=== PATIENT | male | born 1960 | race Caucasian/White ===

== ENCOUNTER 2025-06-28 11:14 | Inpatient (IN) ==
--- NOTE | 2025-06-28 11:34 | Emergency Department Note ---
Impression & Plan AMS (altered mental status), Pancreatic carcinoma metastatic to liver, Acute hyponatremia ED Provider Note NAME: PLACIDO MCGILL AGE: 65 SEX: M : 1960 ARRIVES VIA: Walk-In INFORMANT: Patient ED PROVIDER(S): Alli Rosa DO CHIEF COMPLAINT: Altered mental status HPI: Patient is a 65-year-old male with a past medical history of pancreatic carcinoma with metastatic disease to the liver and asthma who presents to the ER for altered mental status. Son who was present at bedside provides the majority of the history and notes that he was diagnosed with pancreatic cancer and was on chemo previously. That has stopped. They found a new lesion and started with some radiation. He notes that his dad has become confused over the past 2 weeks and has significant worsened over the past week. Patient denies all complaints including headache, neck pain, chest pain or shortness of breath. No other complaints. No upper respiratory symptoms or belly pain. No urinary symptoms. ADDITIONAL HISTORY OBTAINED: Per HPI as described above per son. Chronic Medical/Social Conditions Affecting Care: Per HPI PAST MEDICAL HISTORY:See Below PAST SURGICAL HISTORY:See Below FAMILY HISTORY:See Below SOCIAL HISTORY:See Below HOME MEDICATIONS:See Below ALLERGIES:See Below VITALS:See Below PHYSICAL EXAMINATION: GENERAL: Sitting up in bed, alert, well appearing, well nourished, no distress, non-toxic EYE EXAM: normal conjunctiva. PERRL and EOM's grossly intact. OROPHARYNX: no exudate, no erythema, lips, buccal mucosa, and tongue normal and mucous membranes are moist NECK: supple, no nuchal rigidity, no adenopathy, non-tender LUNGS: Clear to auscultation. Normal chest wall mechanics HEART: no murmurs, S1 normal and S2 normal ABDOMEN: abdomen soft, non-tender, normo-active bowel sounds, no masses, no rebound or guarding. BACK: Back is symmetrical on inspection and there is no deformity, no midline tenderness, no CVA tenderness. SKIN: no rashes and no bruising UPPER EXTREMITIES: upper extremities are grossly normal. LOWER EXTREMITIES: No pitting edema. NEURO EXAM: Oriented to person but not place, year or month, cranial nerves II- XII intact, normal speech, n weakness of arms, no weakness of legs. MEDICAL DECISION MAKING: Patient is a 65-year-old male who presents ER for the above-stated complaint. IV was established blood work was obtained. Labs show no significant leukocytosis. Mild anemia 11.9. BMP with hyponatremia 132. Glucose was elevated at 380. He was given IV insulin and 2 L IV fluids. LFTs bilirubin was unremarkable. Trended down to 312. Troponin was negative. Lipase normal. UA without signs of infection. CT head was negative. Chest x-ray unremarkable. Ammonia was unremarkable. With the confusion I discussed the case with the hospitalist for further evaluation management treatment. Patient and family were updated bedside. Consults/Care Managements Discussions: Per [facility] Triage Nursing notes reviewed. Limited review of prior medical records performed Vital Signs: reviewed and remarkable for no significant abnormalities Differential diagnosis: Differential diagnoses includes but is not limited to toxic, metabolic, infectious, traumatic, cardiac, neurologic, hematologic, psychiatric and inflammatory etiologies. ER treatment provided: See below Diagnostics interpreted by me include EKG and cardiac monitoring as listed below: -Cardiac Monitoring: An order was placed for continuous cardiac monitoring. The monitor shows a rate of 92 with paced rhythm. -ECG: Paced rhythm rate 100 Left axis PVCs QTc 549 -Laboratory studies:Interpreted by me as stated above in MDM and shown below. Imaging studies: Xrays: As interpreted by me: Portable AP upright 1 view of the chest shows no focal Lutrate CTs show: CT of the head showed no acute allergies Procedures:none Critical Care: None Past Med/Surg History Problem List (Updated 06/14/25 @ 10:02 by Debbie Tafoya RN) Acute hyponatremia (Acute) AMS (altered mental status) (Acute) Hyperglycemia Acute encephalopathy Pancreatic carcinoma metastatic to liver (Chronic) Asthma Arthritis Spermatocele Post-operative state (Acute 07/02/14) Medical History (Updated 06/28/25 @ 14:38 by Alli Rosa DO) Other specified cardiac arrhythmias Unilateral inguinal hernia, without obstruction or gangrene, not specified as recurrent Diverticulosis of intestine, part unspecified, without perforation or abscess without bleeding Left lower quadrant pain Spinal stenosis of lumbar region Acute frontal sinusitis Osteoarthritis of knee, unspecified Allergic rhinitis Gastro-esophageal reflux disease without esophagitis Hypothyroidism Pacemaker Cardiac disorder Surgical History (Updated 06/14/25 @ 10:02 by Debbie Tafoya RN) S/P left rotator cuff repair S/p total knee replacement, bilateral History of tonsillectomy History of repair of hiatal hernia History of permanent cardiac pacemaker placement H/O hernia repair left; H/O sinus surgery polyps; Family History (Updated 06/14/25 @ 10:06 by Debbie Tafoya RN) Father Diabetes Hypertension Heart disease Crohn's disease Dementia Mother Congestive heart failure Dementia Diabetes Anemia Aunt Pancreatic cancer, Onset Age: 70 Social History (Updated 06/14/25 @ 10:07 by Debbie Tafoya RN) Smoking Status: Never smoker Hx Alcohol Use: No Hx Substance Use: No Preferred Language: Bolivian Beliefs That Will Affect Care: None marital status: Current Living Situation: Alone current occupational status: employed How many Children do You have: 2 Feels Safe at Home: Yes Allergies Allergies Allergy/AdvReac Type Severity Reaction Status Date / Time cat dander Allergy Mild Verified 06/25/25 14:53 dog dander Allergy Mild Verified 06/25/25 14:53 mold Allergy Mild Verified 06/25/25 14:53 pollen extracts Allergy Mild Verified 06/25/25 14:53 ragweed pollen Allergy Mild Verified 06/25/25 14:53 No Known Drug Allergies Allergy Unknown Verified 06/25/25 14:53 azithromycin AdvReac Mild Diarrhea Verified 06/25/25 14:53 Iodinated Contrast Media AdvReac Mild Nausea Verified 06/25/25 14:53 Dust Allergy Mild Uncoded 06/25/25 14:53 PSEUDOCHOLINESTERASE AdvReac Unknown "resp Uncoded 06/25/25 14:53 distress" Home Meds Home Medications Medication Instructions Recorded Confirmed montelukast 10 mg PO DAILY ##0 09/14/08 06/28/25 Phenylephrine HCl (Ammon-Synephrine) 2 spry intranasal BID PRN 06/14/14 06/28/25 Congestion ##0 albuterol sulfate 90 mcg/actuation 2 inh inhalation QID PRN sob 03/10/21 06/28/25 aerosol inhaler (Ventolin HFA) diltiazem HCl 300 mg 300 mg PO DAILY 06/14/25 06/28/25 capsule,extended release 24 hr (Cartia XT) trazodone 50 mg tablet 50 mg PO HS 06/14/25 06/28/25 levothyroxine 25 mcg tablet 25 mcg PO DAILYBB 06/28/25 06/28/25 lorazepam 0.5 mg tablet 0.5 mg PO TID PRN Anxiety 06/28/25 06/28/25 ondansetron HCl 4 mg tablet 4 mg PO Q8H PRN Nausea 06/28/25 06/28/25 oxycodone 10 mg tablet 5 - 10 mg PO Q4H PRN Pain 06/28/25 06/28/25 pantoprazole 40 mg tablet,delayed 40 mg PO DAILY 06/28/25 06/28/25 release Results & Data (ED) Vital Signs Vital Signs - 24 hr 06/28/25 11:17 06/28/25 12:14 06/28/25 12:30 Temperature 36.2 C L Temperature Source Oral Pulse Rate 80 101 H 97 H Pulse Rate from SpO2 Sensor 97 H Respiratory Rate 18 11 L Respiratory Effort / Characteristics Non-Labored Spontaneous Respiratory Depth Normal Respiratory Pattern Regular Blood Pressure 125/73 123/79 Blood Pressure Mean 90 93 Pulse Oximetry 97 97 Oxygen Delivery Method Room Air Sepsis Recent Fever Within 48 Hours No Sepsis New/Unexplained Change in Mental Status N/A Sepsis Action Taken by Nursing No Action Required Laboratory Data 06/28/25 11:30 06/28/25 11:30 Lab Results 06/28/25 06/28/25 06/28/25 Range/Units 11:30 11:35 12:39 WBC 5.00 (4.8-10.8) K/ul RBC 3.98 L (4.70-6.10) M/uL Hgb 11.9 L (14.0-18.0) g/dL Hct 34.7 L (42.0-52.0) % MCV 87.2 (80.0-100.0) fL MCH 29.9 (25.0-34.0) pg MCHC 34.3 (32.0-36.0) g/dL RDW Std Deviation 48.1 H (36.4-46.3) fL RDW Coeff of [place] 15.2 H (11.5-14.5) % Plt Count 141 (130-400) K/uL MPV 13.1 H (9.4-12.4) fL Immature Gran % (Auto) 0.6 % Neut % (Auto) 78.2 % Lymph % (Auto) 10.6 % Dade % (Auto) 10.4 % Eos % (Auto) 0.0 % Baso % (Auto) 0.2 % Neut # (Auto) 3.91 (1.40-6.50) K/uL Lymph # (Auto) 0.53 L (1.20-3.40) K/uL Dade # (Auto) 0.52 (0.11-0.59) K/uL Eos # (Auto) 0.00 (0.00-0.50) K/uL Baso # (Auto) 0.01 (0.00-0.20) K/uL Immature Gran # (Auto) 0.03 (0.01-0.20) K/uL Sodium 132 L (136-145) mmol/L Potassium 3.9 (3.5-5.1) mmol/L Chloride 93 L (98-107) mmol/L Carbon Dioxide 26 (21-32) mmol/L Anion Gap 13 H (3-11) BUN 12 (6-23) mg/dl Creatinine 0.85 (0.6-1.4) mg/dl Est Cr Clr Drug Dosing Not Reportable eGFR 97.03 BUN/Creatinine Ratio 14.1 (10-20) Glucose 380 H* (70-99(Fasting)) mg/dl POC Glucose 405 H* (70-99) mg/dl Calcium 9.7 (8.6-10.3) mg/dl Total Bilirubin 0.9 (0.2-1.0) mg/dl AST 16 (13-39) U/L ALT 12 (7-52) U/L Alkaline Phosphatase 105 H (34-104) U/L Ammonia 19.0 (18-72) umol/L Troponin I High Sens 18.1 (0-20) pg/ml Total Protein 7.1 (6.0-8.3) gm/dl Albumin 4.2 (3.4-5.0) gm/dl Globulin 2.9 (2.5-4.0) gm/dl Albumin/Globulin Ratio 1.4 (0.9-2) Lipase < 3 L (11-82) U/L Urine Color Urine Appearance (Clear) Urine pH (4.5-7.5) Ur Specific [place] (1.000-1.030) Urine Protein (Negative) Urine Glucose (UA) (Negative) Urine Ketones (Negative) Urine Blood (Negative) Urine Nitrite (Negative) Urine Bilirubin (Negative) Urine Urobilinogen (Negative) Ur Leukocyte Esterase (Negative) Urine WBC (Auto) (0-5) /hpf Urine RBC (Auto) (0-2) /hpf U Hyaline Cast (Auto) (0-2) /lpf U Epithel Cells (Auto) (0-2) /hpf Urine Bacteria (Auto) (None Seen) Urine Comment 06/28/25 06/28/25 Range/Units 13:30 13:37 WBC (4.8-10.8) K/ul RBC (4.70-6.10) M/uL Hgb (14.0-18.0) g/dL Hct (42.0-52.0) % MCV (80.0-100.0) fL MCH (25.0-34.0) pg MCHC (32.0-36.0) g/dL RDW Std Deviation (36.4-46.3) fL RDW Coeff of [place] (11.5-14.5) % Plt Count (130-400) K/uL MPV (9.4-12.4) fL Immature Gran % (Auto) % Neut % (Auto) % Lymph % (Auto) % [place] % (Auto) % Eos % (Auto) % Baso % (Auto) % Neut # (Auto) (1.40-6.50) K/uL Lymph # (Auto) (1.20-3.40) K/uL Dade # (Auto) (0.11-0.59) K/uL Eos # (Auto) (0.00-0.50) K/uL Baso # (Auto) (0.00-0.20) K/uL Immature Gran # (Auto) (0.01-0.20) K/uL Sodium (136-145) mmol/L Potassium (3.5-5.1) mmol/L Chloride (98-107) mmol/L Carbon Dioxide (21-32) mmol/L Anion Gap (3-11) BUN (6-23) mg/dl Creatinine (0.6-1.4) mg/dl Est Cr Clr Drug Dosing eGFR BUN/Creatinine Ratio (10-20) Glucose (70-99(Fasting)) mg/dl POC Glucose 312 H* (70-99) mg/dl Calcium (8.6-10.3) mg/dl Total Bilirubin (0.2-1.0) mg/dl AST (13-39) U/L ALT (7-52) U/L Alkaline Phosphatase (34-104) U/L Ammonia (18-72) umol/L Troponin I High Sens (0-20) pg/ml Total Protein (6.0-8.3) gm/dl Albumin (3.4-5.0) gm/dl Globulin (2.5-4.0) gm/dl Albumin/Globulin Ratio (0.9-2) Lipase (11-82) U/L Urine Color Yellow Urine Appearance Clear (Clear) Urine pH 6.0 (4.5-7.5) Ur Specific [place] 1.038 H (1.000-1.030) Urine Protein Trace H (Negative) Urine Glucose (UA) 3+ H (Negative) Urine Ketones 2+ H (Negative) Urine Blood Negative (Negative) Urine Nitrite Negative (Negative) Urine Bilirubin Negative (Negative) Urine Urobilinogen Negative (Negative) Ur Leukocyte Esterase Negative (Negative) Urine WBC (Auto) 0-5 (0-5) /hpf Urine RBC (Auto) 0-2 (0-2) /hpf U Hyaline Cast (Auto) 3-5 H (0-2) /lpf U Epithel Cells (Auto) 0-2 (0-2) /hpf Urine Bacteria (Auto) None Seen (None Seen) Urine Comment Administered Medications Discontinued Medications Sodium Chloride (Nss) 1,000 mls @ 999 mls/hr IV .Q1H1M ONE Stop: 06/28/25 12:32 Last Infusion: 06/28/25 14:27 Dose: Infused Documented By: Admin: 06/28/25 12:47 Dose: 999 mls/hr Documented By: Sodium Chloride (Nss) 1,000 mls @ 999 mls/hr IV .Q1H1M ONE Stop: 06/28/25 13:22 Last Infusion: 06/28/25 14:27 Dose: Infused Documented By: Admin: 06/28/25 12:48 Dose: 999 mls/hr Documented By: Insulin Human Regular (Novolin-R Insulin Per Unit Charge) 4 units IV NOW STA Stop: 06/28/25 12:23 Last Admin: 06/28/25 12:48 Dose: 4 units Documented By: Co-signed By: GILDARDO Imaging Data Radiologist's Impression: Head CT 06/28/25 11:31 CT head/brain wo con CLINICAL HISTORY: 65 years-old Male with ams. Acutely altered mental status TECHNIQUE: Multiple axial CT images of the head were obtained without contrast. A dose lowering technique was utilized adhering to the principles of ALARA. CT DOSE: 625.8 mGy.cm COMPARISON: Head CT 03/27/2025 FINDINGS: No acute intracranial hemorrhage, midline shift, intracranial mass, hydrocephalus, territorial ischemia or abnormal extra-axial collection. Mild involutional changes. Cerebrovascular calcifications. Chronic postoperative changes of the paranasal sinuses. Mastoid air cells are clear. Unremarkable soft tissues. IMPRESSION: No acute intracranial abnormality. ACT 112: Negative or not required by law. The above report was generated using voice recognition software. It may contain grammatical, syntax or spelling errors. Electronically signed by: David Naylor M.D. 06/28/2025 12:19 PM Chest X-Ray 06/28/25 12:22 XR chest 1V portable CLINICAL HISTORY: ams COMPARISON STUDY: 03/27/2025 FINDINGS: Stable right chest port and left pacemaker. Heart size and pulmonary vasculature are normal. No consolidation or pleural effusion. No pneumothorax. IMPRESSION: No acute findings. ACT 112: Negative or not required by law. Electronically signed by: Rory Ace M.D. 06/28/2025 12:49 PM Discharge Plan Visit Data Chief Complaint: Lethargic Stated Complaint: ABD DISCOMFORT, LETHARGY, CONFUSION, WEAKNESS ED Provider: Alli Rosa Discharge Problem: AMS (altered mental status), Pancreatic carcinoma metastatic to liver, Acute hyponatremia Condition: Fair Forms Stand Alone Forms: My [facility] Prescriptions Prescriptions: No Action trazodone 50 mg tablet 50 mg PO HS diltiazem HCl [Cartia XT] 300 mg capsule,extended release 24hr 300 mg PO DAILY montelukast 10 MG tablet 10 mg PO DAILY Qty: 0 Phenylephrine HCl (Ammon-Synephrine) 225 SPRAYS/15 ML SPRAY 2 spry intranasal BID PRN (Reason: Congestion) Qty: 0 albuterol sulfate [Ventolin HFA] 90 mcg/actuation HFA aerosol inhaler 2 inh inhalation QID PRN (Reason: sob) ondansetron HCl 4 mg tablet 4 mg PO Q8H PRN (Reason: Nausea) levothyroxine 25 mcg tablet 25 mcg PO DAILYBB lorazepam 0.5 mg tablet 0.5 mg PO TID PRN (Reason: Anxiety) pantoprazole 40 mg tablet,delayed release (DR/EC) 40 mg PO DAILY oxycodone 10 mg tablet 5 - 10 mg PO Q4H PRN (Reason: Pain) Patient Comments: Prescribed 1 tablet every 4 hours, per family patient takes 1 or 2 tablets at a time. Referrals Referrals: Varghese Schwab [Primary Care Provider] - Discharge Problem: AMS (altered mental status) Qualifiers: Altered mental status type: unspecified Qualified Code(s): R41.82 - Altered mental status, unspecified
[2025-06-28 11:56] LABS: Hematocrit (blood only) 34.7 % (42.0-52.0); Hemoglobin 11.9 g/dL (14.0-18.0); Immature Granulocytes # (auto) 0.03 K/uL (0.01-0.20); Immature Granulocytes % (auto) 0.6 %; Mean Corpuscular Hemoglobin 29.9 pg (25.0-34.0); Mean Corpuscular Volume 87.2 fL (80.0-100.0); Platelet Count 141 K/uL (130-400); RDW Standard Deviation 48.1 fL (36.4-46.3); Red Blood Count 3.98 M/uL (4.70-6.10); White Blood Count 5.00 K/ul (4.8-10.8)
[2025-06-28 12:20] LABS: Alanine Aminotransferase 12 U/L (7-52); Albumin Globulin Ratio 1.4 (0.9-2); Albumin Level 4.2 gm/dl (3.4-5.0); Alkaline Phosphatase 105 U/L (34-104); Anion Gap 13 (3-11); Bilirubin,Total 0.9 mg/dl (0.2-1.0); Blood Urea Nitrogen 12 mg/dl (6-23); Calcium 9.7 mg/dl (8.6-10.3); Carbon Dioxide 26 mmol/L (21-32); Chloride 93 mmol/L (98-107); Globulin 2.9 gm/dl (2.5-4.0); Glucose 380 mg/dl (70-99(Fasting)); Potassium 3.9 mmol/L (3.5-5.1); Sodium 132 mmol/L (136-145); Total Protein 7.1 gm/dl (6.0-8.3)
--- NOTE | 2025-06-28 12:20 | CT Scan Report ---
CT head/brain wo con CLINICAL HISTORY: 65 years-old Male with ams. Acutely altered mental status TECHNIQUE: Multiple axial CT images of the head were obtained without contrast. A dose lowering tech nique was utilized adhering to the principles of ALARA. CT DOSE: 625.8 mGy.cm COMPARISON: Head CT 03/27/2025 FINDINGS: No acute intracranial hemorrhage, midline shift, intracranial mass, hydrocephalus, territorial ischem ia or abnormal extra-axial collection. Mild involutional changes. Cerebrovascular calcifications. Chronic postoperative changes of the paranasal sinuses. Mastoid air cells are clear. Unremarkable so ft tissues. IMPRESSION: No acute intracranial abnormality. ACT 112: Negative or not required by law. The above report was generated using voice recognition software. It may contain grammatical, syntax o r spelling errors. Electronically signed by: David Naylor M.D. 06/28/2025 12:19 PM
[2025-06-28 12:45] LABS: Lipase < 3 U/L (11-82)
[2025-06-28] MEDS: SODIUM CHLORIDE 0.9% 1,000 ML IV ONE ×2 (12:47→12:48)
[2025-06-28] MEDS: NovoLIN-R INSULIN PER UNIT CHARGE IV STA (12:48)
--- NOTE | 2025-06-28 12:50 | XRay Report ---
XR chest 1V portable CLINICAL HISTORY: ams COMPARISON STUDY: 03/27/2025 FINDINGS: Stable right chest port and left pacemaker. Heart size and pulmonary vasculature are normal . No consolidation or pleural effusion. No pneumothorax. IMPRESSION: No acute findings. ACT 112: Negative or not required by law. Electronically signed by: Rory Ace M.D. 06/28/2025 12:49 PM
[2025-06-28 13:47] LABS: Appearance Urine Clear (Clear); Bacteria Urine Automated None Seen (None Seen); Epithelial Cell Urine Auto 0-2 /hpf (0-2); Glucose Urine UA 3+ (Negative); RBC Urine Automated 0-2 /hpf (0-2); WBC Urine Automated 0-5 /hpf (0-5)
--- NOTE | 2025-06-28 14:35 | History & Physical Report ---
Date of Service June 28, 2025 Assessment & Plan (1) Acute encephalopathy: (2) Hyperglycemia: (3) Pancreatic carcinoma metastatic to liver: (4) Hypothyroidism: Plan This patient is a 65-year-old male with a history of metastatic pancreatic cancer, pacemaker for complete heart block after ablation, asthma, hypothyroidism, HTN, GERD, and insomnia, who presents to the ED with increasing confusion over the last 2 weeks. He has recently been undergoing radiation to the pancreatic mass. Patient denies headache, neck pain, chest pain or shortness of breath, no cough or congestion, no fevers or chills, no urinary symptoms, no nausea/vomiting/diarrhea but has had some constipation. He denies increase in urination but has felt very thirsty. He has been taking Percocet for pain and then was given a higher dose of oxycodone without acetaminophen. The patient reports he has been taking 2 of these tablets 3 times a day on average but his son and daughter at the bedside are wondering if he accidentally took too much due to his confusion. Patient complains at the time of admission of epigastric abdominal pain and is asking for something for pain. He is slow to speak which his daughter reports is unusual for him-he is typically very talkative. In the ED, he was found to have a blood sugar in the low 400s, but laboratory workup was otherwise fairly unremarkable. A CT of the head was negative for acute issues and a CXR was negative. He was given IV fluids and IV insulin. He will be admitted for acute encephalopathy likely secondary to hyperglycemia, and possibly due to overdose of oxycodone. #Acute encephalopathy/hyperglycemia/possible toxic encephalopathy secondary to opioid use-hyperglycemic in the 400s could be secondary to pancreatic insufficiency s/p pancreatic cancer and radiation of the pancreas. Also may have overdosed on oxycodone. He has been taking 2 of the 10 mg tablets 3 times a day because I believe he thought they were [address] head without acute issue and he cannot have a brain MRI due to his MRI incompatible pacemaker but doubtful he had a stroke. He could potentially have an intracranial mass lesion but nothing seen on CT and no focal neurological symptoms. NH3 level normal. No evidence of infection-no fevers, no leukocytosis, CXR negative, UA negative, no other symptoms besides lethargy and confusion. Do not suspect meningitis or infectious encephalitis - Admit to medical floor with telemetry - Continue IV fluid hydration as he is dry with 2 more liters of LR at 125 mL/h - Give Lantus 5 units now and then 8 units every night at bedtime. Start NovoLog supplemental insulin - Check HgbA1c - Check APAP level due to possible overdose of Percocet although LFTs are normal - Follow CBC, BMP, magnesium in the morning - Supportive care #Pseudohyponatremia-sodium 132 on admission but normalizes when corrected for hyperglycemia to 136 -Follow BMP #Metastatic pancreatic cancer-with metastases to the liver, previously underwent chemotherapy as well as liver mass excision, but has since stopped chemotherapy as he was thought to be in remission as per his family. However, I discussed his care with his oncologist and she reports that after 6 months of systemic chemotherapy, the patient decided that he did not want any more chemotherapy even though it was recommended. He went on surveillance and then began having abdominal pain in 03/2025. He had a repeat CT scan in 04/2025 which again showed a 2.6 cm mass in the pancreas. He had increasing pain in the upper abdomen and had an EUS with [facility] which showed a 3 cm pancreatic head mass and a liver mass-his oncologist again offered systemic chemotherapy but the patient declined to have this. He is exploring a clinical trial for a specific radiation therapy at [facility] which he cannot get into until the end of the year. He is also exploring alternative therapies with a doctor in [place]. In the meantime, for pain control, his oncologist referred him to radiation oncology and he is receiving radiation to pancreatic head mass. His son and daughter are under the impression that his cancer is in remission and that the radiation is for "nerve pain." It may be that the patient has not wanted to tell his children the truth about his stage IV cancer. -Continue treating pain-okay to give oxycodone 10 mg p.o. every 4 hours as needed pain and IV Dilaudid as needed on top of that for breakthrough pain - Follow-up with oncology and radiation oncology after discharge #HTN/permanent pacemaker-BPs are under control. Pacemaker placed after a failed SVT ablation resulted in what sounds like complete heart block-pacemaker was placed 30 years ago when he had battery exchange in 11/2024. He follows with Dr. Burciaga of cardiology in [place]. - Continue diltiazem #Hypothyroidism-TSH recently 5.0 - Continue home levothyroxine #Asthma-no acute issues - Albuterol as needed - Continue Singulair #GERD-no acute issues - Continue Protonix #Insomnia-no acute issues - Continue trazodone 50 mg p.o. at bedtime DVT prophylaxis-SCDs, Lovenox SQ as he is high risk for DVT/PE Disposition-admit to medical floor with telemetry History of Present Illness Chief Complaint: confusion Primary Care Provider: Varghese Schwab This patient is a 65-year-old male with a history of metastatic pancreatic cancer, pacemaker for complete heart block after ablation, asthma, hypothyroidism, HTN, GERD, and insomnia, who presents to the ED with increasing confusion over the last 2 weeks. He has recently been undergoing radiation to the pancreatic mass. Patient denies headache, neck pain, chest pain or shortness of breath, no cough or congestion, no fevers or chills, no urinary symptoms, no nausea/vomiting/diarrhea but has had some constipation. He denies increase in urination but has felt very thirsty. He has been taking Percocet f or pain and then was given a higher dose of oxycodone without acetaminophen. The patient reports he has been taking 2 of these tablets 3 times a day on average but his son and daughter at the bedside are wondering if he accidentally took too much due to his confusion. Patient complains at the time of admission of epigastric abdominal pain and is asking for something for pain. He is slow to speak which his daughter reports is unusual for him-he is typically very talkative. In the ED, he was found to have a blood sugar in the low 400s, but laboratory workup was otherwise fairly unremarkable. A CT of the head was negative for acute issues and a CXR was negative. He was given IV fluids and IV insulin. He will be admitted for acute encephalopathy likely secondary to hyperglycemia, and possibly due to overdose of oxycodone. Allergies Allergy/AdvReac Type Severity Reaction Status Date / Time cat dander Allergy Mild Verified 06/25/25 14:53 dog dander Allergy Mild Verified 06/25/25 14:53 mold Allergy Mild Verified 06/25/25 14:53 pollen extracts Allergy Mild Verified 06/25/25 14:53 ragweed pollen Allergy Mild Verified 06/25/25 14:53 No Known Drug Allergies Allergy Unknown Verified 06/25/25 14:53 azithromycin AdvReac Mild Diarrhea Verified 06/25/25 14:53 Iodinated Contrast Media AdvReac Mild Nausea Verified 06/25/25 14:53 Dust Allergy Mild Uncoded 06/25/25 14:53 PSEUDOCHOLINESTERASE AdvReac Unknown "resp Uncoded 06/25/25 14:53 distress" Home Medications Medication Instructions Recorded Confirmed Type montelukast 10 mg PO DAILY ##0 09/14/08 06/28/25 History Phenylephrine HCl (Ammon-Synephrine) 2 spry intranasal BID PRN 06/14/14 06/28/25 History Congestion ##0 albuterol sulfate 90 mcg/actuation 2 inh inhalation QID PRN sob 03/10/21 06/28/25 History aerosol inhaler (Ventolin HFA) diltiazem HCl 300 mg 300 mg PO DAILY 06/14/25 06/28/25 History capsule,extended release 24 hr (Cartia XT) trazodone 50 mg tablet 50 mg PO HS 06/14/25 06/28/25 History levothyroxine 25 mcg tablet 25 mcg PO DAILYBB 06/28/25 06/28/25 History lorazepam 0.5 mg tablet 0.5 mg PO TID PRN Anxiety 06/28/25 06/28/25 History ondansetron HCl 4 mg tablet 4 mg PO Q8H PRN Nausea 06/28/25 06/28/25 History oxycodone 10 mg tablet 5 - 10 mg PO Q4H PRN Pain 06/28/25 06/28/25 History pantoprazole 40 mg tablet,delayed 40 mg PO DAILY 06/28/25 06/28/25 History release Past Med/Surg History Problem List Acute hyponatremia (Acute) AMS (altered mental status) (Acute) Hyperglycemia Acute encephalopathy Pancreatic carcinoma metastatic to liver (Chronic) Asthma Arthritis Spermatocele Medical History Other specified cardiac arrhythmias Unilateral inguinal hernia, without obstruction or gangrene, not specified as recurrent Diverticulosis of intestine, part unspecified, without perforation or abscess without bleeding Left lower quadrant pain Spinal stenosis of lumbar region Acute frontal sinusitis Osteoarthritis of knee, unspecified Allergic rhinitis Gastro-esophageal reflux disease without esophagitis Hypothyroidism Pacemaker Cardiac disorder Surgical History S/P left rotator cuff repair S/p total knee replacement, bilateral History of tonsillectomy History of repair of hiatal hernia History of permanent cardiac pacemaker placement H/O hernia repair left; H/O sinus surgery polyps; Family History Father Diabetes Hypertension Heart disease Crohn's disease Dementia Mother Congestive heart failure Dementia Diabetes Anemia Aunt Pancreatic cancer, Onset Age: 70 Social History Smoking Status: Never smoker Hx Alcohol Use: No Hx Substance Use: No Preferred Language: Italian Beliefs That Will Affect Care: None marital status: Current Living Situation: Alone current occupational status: employed How many Children do You have: 2 Feels Safe at Home: Yes Review of Systems Review of Systems: All systems reviewed & are unremarkable except as noted in HPI & below Physical Exam Constitutional: WD/WN, vitals as above Eyes: PERRL, conjunctivae normal, anicteric sclerae ENMT: Mouth: + dry oral mucous membranes Neck: trachea midline, no thyromegaly Respiratory: normal respiratory effort, lungs clear to auscultation Cardiovascular: RRR, no murmur, no edema Chest (Breasts): Chest: normal inspection of chest Gastrointestinal (Abdomen): normal bowel sounds, soft, nontender, no hepatosplenomegaly Musculoskeletal: Extremities: extremities normal to inspection; no cyanosis and no clubbing Skin: no rashes, warm and dry Neurologic: moves all extremities and awake; no focal motor deficits Mo tor/Sensory: no tremor Psychiatric: Orientation: alert (But intermittently drowsy), oriented x 3 and cooperative Lymphatic: no lymphedema Results & Data Results & Data Vital Signs (Past 12 Hours) Vital Signs Temp Pulse Resp BP Pulse Ox O2 Del Method 06/28/25 12:30 97 H 11 L 123/79 97 06/28/25 12:14 101 H 06/28/25 11:17 36.2 C L 80 18 125/73 97 Room Air Laboratory Results CBC, CMP, lipase, troponin, ammonia level, UA, reviewed Diagnostic Findings Head CT 06/28/25 11:31 CT head/brain wo con CLINICAL HISTORY: 65 years-old Male with ams. Acutely altered mental status TECHNIQUE: Multiple axial CT images of the head were obtained without contrast. A dose lowering technique was utilized adhering to the principles of ALARA. CT DOSE: 625.8 mGy.cm COMPARISON: Head CT 03/27/2025 FINDINGS: No acute intracranial hemorrhage, midline shift, intracranial mass, hydrocephalus, territorial ischemia or abnormal extra-axial collection. Mild involutional changes. Cerebrovascular calcifications. Chronic postoperative changes of the paranasal sinuses. Mastoid air cells are clear. Unremarkable soft tissues. IMPRESSION: No acute intracranial abnormality. ACT 112: Negative or not required by law. The above report was generated using voice recognition software. It may contain grammatical, syntax or spelling errors. Electronically signed by: David Naylor M.D. 06/28/2025 12:19 PM Chest X-Ray 06/28/25 12:22 XR chest 1V portable CLINICAL HISTORY: ams COMPARISON STUDY: 03/27/2025 FINDINGS: Stable right chest port and left pacemaker. Heart size and pulmonary vasculature are normal. No consolidation or pleural effusion. No pneumothorax. IMPRESSION: No acute findings. ACT 112: Negative or not required by law. Electronically signed by: Rory Ace M.D. 06/28/2025 12:49 PM ECG Additional Comments: ECG with AV paced rhythm Code Status & VTE Plan VTE Prophylaxis Plan VTE Prophylaxis will be ordered: Yes PG Care Time/CCT Total # of Minutes Spent Total Time Spent with Patient: Total time spent is greater than 50% in coordination of care (as documented) at patient's floor/unit and/or counseling patient: Coding Level of Care Code 06498 INT INP/OBS CARE 3/75MIN Diagnoses Acute encephalopathy G93.40 Hyperglycemia R73.9 Pancreatic carcinoma metastatic to liver C25.9; C78.7 Hypothyroidism E03.9
[2025-06-28] MEDS: HYDROmorphone INJ 0.5 MG/0.5 ML SYR IV STA (16:12)
[2025-06-28] MEDS: LANTUS PER UNIT CHARGE SQ ONE (16:31)
[2025-06-28 16:48] LABS: Hemoglobin A1C 13.4 % (4.5-5.6)
[2025-06-28] MEDS ORDERED: DEXTROSE 50% 50 ML SYRINGE IV PRN (18:23)
[2025-06-28] MEDS ORDERED: GLUCAGON FOR INJ 1 MG VIAL SQ PRN (18:23)
[2025-06-28] MEDS ORDERED: CARBOHYDRATES FOR HYPOGLYCEMIA PO PRN (18:23)
[2025-06-28] MEDS ORDERED: GLUCOSE 10 TAB/TUBE PO PRN (18:23)
[2025-06-28] MEDS ORDERED: ONDANSETRON INJ 2 MG/ML 2 ML VIAL IV PRN (18:23)
[2025-06-28] MEDS ORDERED: GLUCOSE 40% GEL 15 GM TUBE PO PRN (18:23)
[2025-06-28] MEDS ORDERED: ALBUTEROL HFA 8 GM INHALER INH PRN (18:23)
--- NOTE | 2025-06-28 18:36 | Electrocardiogram Report ---
Test Reason : Blood Pressure : */* mmHG Vent. Rate : 100 BPM Atrial Rate : 100 BPM P-R Int : 144 ms QRS Dur : 160 ms QT Int : 426 ms P-R-T Axes : 62 -11 131 degrees QTcB Int : 549 ms Atrial-sensed ventricular-paced rhythm Abnormal ECG When compared with ECG of 27-Mar-2025 16:07, Vent. rate has increased by 31 bpm Confirmed by Dagoberto Taveras ([id number]) on 06/28/2025 6:36:00 PM Referred By: REFERRED SELF Confirmed By: Dagoberto Taveras
[2025-06-28] MEDS: LACTATED RINGER'S 1,000 ML IV SCH (18:42)
[2025-06-28] MEDS: INSULIN ASPART PER UNIT CHARGE SC SCH (18:48)
[2025-06-28] MEDS: PSYLLIUM HUSK 4GM PACKET PO SCH (20:03)
[2025-06-28] MEDS: ENOXAPARIN INJ 40 MG/0.4 ML SYR SQ SCH (20:04)
[2025-06-28] MEDS: LANTUS PER UNIT CHARGE SQ SCH (21:13)
[2025-06-29] MEDS: HYDROmorphone INJ 0.5 MG/0.5 ML SYR IV PRN ×2 (03:05→20:02)
[2025-06-29] MEDS: LEVOTHYROXINE SODIUM 25 MCG TABLET PO SCH (06:06)
[2025-06-29 07:08] LABS: Hematocrit (blood only) 30.3 % (42.0-52.0); Hemoglobin 10.5 g/dL (14.0-18.0); Immature Granulocytes # (auto) 0.02 K/uL (0.01-0.20); Immature Granulocytes % (auto) 0.5 %; Mean Corpuscular Hemoglobin 29.9 pg (25.0-34.0); Mean Corpuscular Volume 86.3 fL (80.0-100.0); Platelet Count 112 K/uL (130-400); RDW Standard Deviation 46.9 fL (36.4-46.3); Red Blood Count 3.51 M/uL (4.70-6.10); White Blood Count 3.81 K/ul (4.8-10.8)
[2025-06-29 07:30] LABS: Alanine Aminotransferase 9.0 U/L (7-52); Albumin Globulin Ratio 1.5 (0.9-2); Albumin Level 3.2 gm/dl (3.4-5.0); Alkaline Phosphatase 70.0 U/L (34-104); Anion Gap 7.0 (3-11); Bilirubin,Total 0.5 mg/dl (0.2-1.0); Blood Urea Nitrogen 4.0 mg/dl (6-23); Calcium 8.5 mg/dl (8.6-10.3); Carbon Dioxide 27.0 mmol/L (21-32); Chloride 101.0 mmol/L (98-107); Creatinine Clr Calc Pharmacy 139.3 ml/min; Globulin 2.1 gm/dl (2.5-4.0); Glucose 178.0 mg/dl (70-99(Fasting)); Magnesium 1.6 mg/dl (1.7-2.4); Potassium 3.1 mmol/L (3.5-5.1); Sodium 135.0 mmol/L (136-145); Total Protein 5.3 gm/dl (6.0-8.3)
[2025-06-29] MEDS: MONTELUKAST SODIUM 10 MG TABLET PO SCH (09:53)
[2025-06-29] MEDS: MAGNESIUM SULFATE / D5W 1 GM/100 ML BAG IV SCH (09:55)
[2025-06-29] MEDS ORDERED: Nursing to Pharmacy Communication STA (10:01)
[2025-06-29] MEDS: POTASSIUM CHLORIDE CRTAB 20 MEQ TABCR PO STA ×2 (10:08→10:59)
--- NOTE | 2025-06-29 12:45 | Hospitalist Progress Note ---
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 He has recently been undergoing radiation to the pancreatic mass. Patient denies headache, neck pain, chest pain or shortness of breath, no cough or congestion, no fevers or chills, no urinary symptoms, no nausea/vomiting/diarrhea but has had some constipation. He denies increase in urination but has felt very thirsty. He is slow to speak which his daughter reports is unusual for him-he is typically very talkative. In the ED, he was found to have a blood sugar in the low 400s, but laboratory workup was otherwise fairly unremarkable. A CT of the head was negative for acute issues and a CXR was negative. He was given IV fluids and IV insulin. As it turns out, he has been taking excessive amounts of his new prescription for oxycodone 10 mg tablets-took an average of 10.6 tablets daily over the last 13 days since his last bottle was filled. He will be admitted for acute encephalopathy secondary to hyperglycemia, and unintentional overdose of oxycodone. #Acute metabolic and toxic encephalopathy/hyperglycemia/unintentional excessive opioid use-hyperglycemic in the 400s could be secondary to pancreatic insufficiency s/p pancreatic cancer and radiation of the pancreas. He has been taking excessive doses of oxycodone over the last 2 weeks for pain in the abdomen. CT head negative, he cannot have a brain MRI due to his MRI incompatible pacemaker but doubtful he had a stroke. He could potentially have an intracranial mass lesion but nothing seen on CT and no focal neurological symptoms. NH3 level normal, APAP level normal. No evidence of infection-no fevers, no leukocytosis, CXR negative, UA negative, no other symptoms besides lethargy and confusion. Do not suspect meningitis or infectious encephalitis. He is now significantly improved with decreasing his dose of oxycodone and treating his hyperglycemia, giving IV fluids - Continued stay on medical floor with telemetry - Treating diabetes as below -Pain management as below - Supportive care, suggested to his family that they help control his oxycodone dosing in the future #Metastatic pancreatic cancer-with metastases to the liver, previously underwent chemotherapy as well as liver mass excision, but has since stopped chemotherapy as he was thought to be in remission as per his family. However, I discussed his care with his oncologist and she reports that after 6 months of systemic chemotherapy, the patient decided that he did not want any more chemotherapy even though it was recommended. He went on surveillance and then began having abdominal pain in 03/2025. He had a repeat CT scan in 04/2025 which again showed a 2.6 cm mass in the pancreas. He had increasing pain in the upper abdomen and had an EUS with [facility] in 05/2025 which showed a 3 cm pancreatic head mass and a liver mass-his oncologist again offered systemic chemotherapy but the patient declined to have this. He is exploring a clinical trial for a specific radiation therapy at [facility] which he cannot get into until the end of the year. He is also exploring alternative therapies with a doctor in [place]. The patient does feel that he was "misled" as far as his cancer-he does truly think that he was told that everything was "good." In the meantime, for pain control, his oncologist referred him to radiation oncology and he is receiving radiation to pancreatic head mass. He is okay with me talking to his children about his diagnosis and was not intentionally shielding them from it -Start fentanyl patch 12 mcg every 72 hours - Continue oxycodone 10 mg p.o. 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 He presented with confusion and dehydration with hyperglycemia glucose in the 400s. Blood sugars are improving with IV fluids and starting Lantus and NovoLog-down in the 200-3 100s. 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 Counseled him on the importance of staying along with multiple members of the family at bedside and on speaker phone. He is agreeable to staying for now. - Continue trazodone 50 mg p.o. at bedtime - Continue lorazepam 0.5 mg p.o. 3 times daily as needed for anxiety #HTN/permanent pacemaker-BPs are under control. Pacemaker placed after a failed SVT ablation resulted in what sounds like complete heart block-pacemaker was placed 30 years ago when he had battery exchange in 11/2024. He follows with Dr. Burciaga of cardiology in [place]. He is in a paced rhythm but also in the 80s to 100s at times on telemetry - Continue diltiazem #Hypothyroidism-TSH recently 5.0 - Continue home levothyroxine #Asthma-no acute issues - Albuterol as needed - Continue Singulair #GERD-no acute issues - Continue Protonix DVT prophylaxis-SCDs, Lovenox SQ as he is high risk for DVT/PE Disposition-continued stay on medical floor with telemetry, possible discharge home on 06/30 Admission and Anticipated Discharge Date Admission Date: June 28, 2025 Subjective Patient is much improved today with mentation. He feels his pain is controlled. He does report that he thought his interpretation from oncology was that his cancer was gone but that he knew he was doing radiation. He thinks that he was misled. He is agreeable to starting on a fentanyl patch for baseline pain control. His blood sugars are improved but remain elevated. He is agreeable to going on insulin at home. Later in the evening, I was called to the patient's bedside as he was wanting to leave AGAINST MEDICAL ADVICE. I discussed his care with his daughter on speaker phone, his brother and nephew at the bedside. The patient is frustrated and thinks that he can just handle everything "on my own like I have for the last year and a half." Patient was agreeable to staying at least until his daughter came into visit and then he will decide if he is going home or not. Telemetry with paced rhythm with rates in the 80s to 100s. Physical Exam Constitutional: WD/WN, vitals as above Neck: trachea midline, no thyromegaly Respiratory: normal respiratory effort, lungs clear to auscultation Cardiovascular: RRR, no murmur, no edema Chest (Breasts): Chest: normal inspection of chest Gastrointestinal (Abdomen): normal bowel sounds, soft, nontender, no hepatosplenomegaly (Except mild TTP in epigastric region without guarding) Musculoskeletal: Extremities: extremities normal to inspection; no cyanosis and no clubbing Skin: no rashes, warm and dry Neurologic: moves all extremities and awake; no focal motor deficits Motor/Sensory: no tremor Psychiatric: Orientation: alert, oriented x 3 and cooperative Lymphatic: no lymphedema Results & Data Results & Data Vital Signs (Past 12 Hours) Vital Signs Temp Pulse Resp BP Pulse Ox O2 Del Method 06/29/25 11:35 36.6 C 100 H 16 121/74 99 Room Air 06/29/25 08:05 36.7 C 86 16 130/70 98 Room Air 06/29/25 03:35 36.7 C 87 18 131/67 97 Room Air Laboratory Results CBC, CMP, magnesium, HgbA1c, APAP level reviewed PG Care Time/CCT Total # of Minutes Spent Total Time Spent with Patient: Total time spent is greater than 50% in coordination of care (as documented) at patient's floor/unit and/or counseling patient: Coding Level of Care Code 11511 SUB INP/OBS CARE 3/50MIN Diagnoses Acute encephalopathy G93.40 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
[2025-06-29] MEDS: LANTUS PER UNIT CHARGE SQ ONE (13:24)
[2025-06-29] MEDS: LORazepam 0.5 MG TAB PO PRN (14:51)
[2025-06-29] MEDS: POLYETHYLENE (MIRALAX) 17 GM PACK PO PRN (18:09)
[2025-06-29] MEDS: LANTUS PER UNIT CHARGE SQ SCH (21:57)
[2025-06-30 08:00] VITALS: RESP 16; TEMP 98.2
[2025-06-30 09:19] LABS: Hematocrit (blood only) 29.8 % (42.0-52.0); Hemoglobin 10.3 g/dL (14.0-18.0); Immature Granulocytes # (auto) 0.02 K/uL (0.01-0.20); Immature Granulocytes % (auto) 0.5 %; Mean Corpuscular Hemoglobin 30.0 pg (25.0-34.0); Mean Corpuscular Volume 86.9 fL (80.0-100.0); Platelet Count 120 K/uL (130-400); RDW Standard Deviation 48.0 fL (36.4-46.3); Red Blood Count 3.43 M/uL (4.70-6.10); White Blood Count 3.84 K/ul (4.8-10.8)
[2025-06-30 09:36] LABS: Alanine Aminotransferase 10.0 U/L (7-52); Albumin Globulin Ratio 1.5 (0.9-2); Albumin Level 3.3 gm/dl (3.4-5.0); Alkaline Phosphatase 66.0 U/L (34-104); Anion Gap 6.0 (3-11); Bilirubin,Total 0.6 mg/dl (0.2-1.0); Blood Urea Nitrogen 3.0 mg/dl (6-23); Calcium 8.4 mg/dl (8.6-10.3); Carbon Dioxide 29.0 mmol/L (21-32); Chloride 102.0 mmol/L (98-107); Creatinine Clr Calc Pharmacy 129.0 ml/min; Globulin 2.2 gm/dl (2.5-4.0); Glucose 163.0 mg/dl (70-99(Fasting)); Magnesium 1.7 mg/dl (1.7-2.4); Potassium 3.5 mmol/L (3.5-5.1); Sodium 137.0 mmol/L (136-145); Total Protein 5.5 gm/dl (6.0-8.3)
[2025-06-30 11:01] VITALS: BP 106/66; O2SAT 98
[2025-06-30] MEDS: POTASSIUM CHLORIDE CRTAB 20 MEQ TABCR PO STA (11:13)
[2025-06-30] MEDS: COUGH DROP (SUGAR FREE) LOZ 24 LOZ/1 BOX BUCCAL PRN (11:44)
--- NOTE | 2025-06-30 13:39 | Discharge Summary ---
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 He has recently been undergoing radiation to the pancreatic mass. Patient denies headache, neck pain, chest pain or shortness of breath, no cough or congestion, no fevers or chills, no urinary symptoms, no nausea/vomiting/diarrhea but has had some constipation. He denies increase in urination but has felt very thirsty. He is slow to speak which his daughter reports is unusual for him-he is typically very talkative. In the ED, he was found to have a blood sugar in the low 400s, but laboratory workup was otherwise fairly unremarkable. A CT of the head was negative for acute issues and a CXR was negative. He was given IV fluids and IV insulin. As it turns out, he has been taking excessive amounts of his new prescription for oxycodone 10 mg tablets-took an average of 10.6 tablets daily over the last 13 days since his last bottle was filled. He was admitted for acute encephalopathy secondary to hyperglycemia, and unintentional overdose of oxycodone. #Acute metabolic and toxic encephalopathy/hyperglycemia/unintentional excessive opioid use-hyperglycemic in the 400s secondary to pancreatic insufficiency s/p pancreatic cancer and radiation of the pancreas. He has been taking excessive doses of oxycodone over the last 2 weeks for pain in the abdomen. CT head negative, he cannot have a brain MRI due to his MRI incompatible pacemaker but doubtful he had a stroke. He could potentially have an intracranial mass lesion but nothing seen on CT and no focal neurological symptoms. NH3 level normal, APAP level normal. No evidence of infection-no fevers, no leukocytosis, CXR negative, UA negative, no other symptoms besides lethargy and confusion. Do not suspect meningitis or infectious encephalitis. He is now significantly improved with decreasing his dose of oxycodone and treating his hyperglycemia, giving IV fluids - Stable to discharge to home with pain regimen outlined as below - Treating diabetes as below - Supportive care, suggested to his family that they help control his oxycodone dosing in the future #Metastatic pancreatic cancer-with metastases to the liver, previously underwent chemotherapy as well as liver mass excision, but has since stopped chemotherapy as he was thought to be in remission as per his family. However, I discussed his care with his oncologist and she reports that after 6 months of systemic chemotherapy, the patient decided that he did not want any more chemotherapy even though it was recommended. He went on surveillance and then began having abdominal pain in 03/2025. He had a repeat CT scan in 04/2025 which again showed a 2.6 cm mass in the pancreas. He had increasing pain in the upper abdomen and had an EUS with [facility] in 05/2025 which showed a 3 cm pancreatic head mass and a liver mass-his oncologist again offered systemic chemotherapy but the patient declined to have this. He is exploring a clinical trial for a specific radiation therapy at [facility] which he cannot get into until the end of the year. He is also exploring alternative therapies with a doctor in [place]. The patient does feel that he was "misled" as far as his cancer-he does truly think that he was told that everything was "good." In the meantime, for pain control, his oncologist referred him to radiation oncology and he is receiving radiation to pancreatic head mass. He is okay with me talking to his children about his diagnosis and was not intentionally shielding them from it. His pain is now very well-controlled with fentanyl patch 12 mcg and only taking oxycodone 10 mg p.o. 3 times daily for breakthrough pain. -Continue fentanyl patch 12 mcg every 72 hours - Continue oxycodone 10 mg p.o. every 6 hours as needed for severe breakthrough pain - May need to titrate up on fentanyl patch as an outpatient-recommend outpatient follow-up with palliative medicine after discharge-I texted the palliative medicine outboard motors experimental mechanic to schedule this appointment - Continue radiation therapy-he received a treatment on 06/29 in the hospital - He is awaiting a PET scan in July and reports he will decide about systemic chemotherapy at that time based on the results - Follow-up with oncology and radiation oncology after discharge #Diabetes mellitus secondary to pancreatic disorder-his HgbA1c here is significantly elevated at 13.4%. He presented with confusion and dehydration with hyperglycemia glucose in the 400s. Blood sugars are now much improved with IV fluids and starting Lantus and NovoLog. He was seen by the tobacco educator and given education on diabetes. A continuous glucose monitor/Dexcom was placed on him and he understands how to use it. - Discharge to home on Lantus 15 units SQ at bedtime-this may need to be titrated up as an outpatient - Will not give NovoLog with meals for now to keep his plan simple but he may need this in the future - Metformin will not help him as this is not likely diabetes mellitus type 2 - Will need close follow-up with PCP #Insomnia/anxiety-stable - Continue trazodone 50 mg p.o. at bedtime - Continue lorazepam 0.5 mg p.o. 3 times daily as needed for anxiety #HTN/permanent pacemaker-BPs are under control. Pacemaker placed after a failed SVT ablation resulted in what sounds like complete heart block-pacemaker was placed 30 years ago when he had battery exchange in 11/2024. He follows with Dr. Stovall of cardiology in [place]. He is in a paced rhythm but also in the 80s to 100s at times on telemetry - Continue diltiazem #Hypothyroidism-TSH recently 5.0 - Continue home levothyroxine #Asthma-no acute issues - Albuterol as needed - Continue Singulair #GERD-no acute issues - Continue Protonix DVT prophylaxis-SCDs, Lovenox SQ as he is high risk for DVT/PE Disposition-stable for discharge to home on 06/30 Notes For Next Care Provider Needs close follow-up for management of new onset diabetes Close follow-up with oncology and palliative medicine as an outpatient Medication Changes From Visit Added fentanyl patch 12 mcg/hour TD every 72 hours Decreased the frequency of oxycodone to 10 mg p.o. every 6 hours as needed for severe breakthrough pain Added Lantus 15 units SQ at bedtime Admission HPI Per Admitting Provider This patient is a 65-year-old male with a history of metastatic pancreatic cancer, pacemaker for complete heart block after ablation, asthma, hypothyroidism, HTN, GERD, and insomnia, who presents to the ED with increasing confusion over the last 2 weeks. He has recently been undergoing radiation to the pancreatic mass. Patient denies headache, neck pain, chest pain or shortness of breath, no cough or congestion, no fevers or chills, no urinary symptoms, no nausea/vomiting/diarrhea but has had some constipation. He denies increase in urination but has felt very thirsty. He has been taking Percocet for pain and then was given a higher dose of oxycodone without acetaminophen. The patient reports he has been taking 2 of these tablets 3 times a day on average but his son and daughter at the bedside are wondering if he accidentally took too much due to his confusion. Patient complains at the time of admission of epigastric abdominal pain and is asking for something for pain. He is slow to speak which his daughter reports is unusual for him-he is typically very talkative. In the ED, he was found to have a blood sugar in the low 400s, but laboratory workup was otherwise fairly unremarkable. A CT of the head was negative for acute issues and a CXR was negative. He was given IV fluids and IV insulin. He will be admitted for acute encephalopathy likely secondary to hyperglycemia, and possibly due to overdose of oxycodone. Discharge Exam Constitutional WD/WN, vitals as above Neck trachea midline, no thyromegaly Respiratory normal respiratory effort, lungs clear to auscultation Cardiovascular RRR, no murmur, no edema Chest (Breasts) Chest: normal inspection of chest Gastrointestinal (Abdomen) normal bowel sounds, soft, nontender, no hepatosplenomegaly Musculoskeletal Extremities: extremities normal to inspection; no cyanosis and no clubbing Skin no rashes, warm and dry Neurologic moves all extremities and awake; no focal motor deficits Motor/Sensory: no tremor Psychiatric Orientation: alert, oriented x 3 and cooperative Lymphatic no lymphedema Discharge Plan Discharge Items Patient Disposition: Home - Self-Care Reason For Visit: ACUTE ENCEPHALOPATHY, HYPERGLYCEMIA Discharge Diagnosis: Acute metabolic and toxic encephalopathy New onset diabetes mellitus secondary to pancreatic rhqdupew-zajglkl-fdeocxzbi Unintentional overdose of opioid medication Condition on Discharge: Good Activity: As commented below Bathing: No limitations Exercise/Sports: Gradually increase as tolerated Driving/Machine Use: No driving while taking opioids Weightbearing: Full weightbearing Non-emergency contact: Primary Care Provider, Oncologist and Pain Management Call non-emergency contact if: you have any medication questions, your symptoms worsen, your pain is not controlled, your pain is worsening, your pain is unusual for you and you have a fever Follow-up/Referrals: Varghese Schwab [Primary Care Provider] - (Please follow-up within 1-2 weeks after discharge.) Kendy Rowe DNP [Nurse Practitioner] - (Please follow-up with the nurse practitioner, Kendy Rowe, of palliative medicine within 1-2 weeks for pain management.) Diet: Carb Consistent or DM2 Addtl Attending Provider Instructions: You were admitted with confusion secondary to high blood sugars from new onset diabetes, as well as an unintentional overdose of oxycodone. You are now much improved. You were fitted with a continuous glucose monitor to watch your blood sugars constantly. You were having a little difficulty with the bluetooth on your phone connecting to the Dexcom. Sometimes turning the bluetooth off and back on or turning your phone off and back on can help. If you have any further trouble with this, please call [employer] support at to help troubleshoot. You were started on long-acting insulin called Lantus 15 units subcutaneously every night at bedtime. This dose may need to be adjusted over time by your primary care physician. If your PCP desires to refer you to endocrinology, that is also an option but sometimes can take time to get in for an appointment. Please follow all the instructions given to you by the tobacco educator. As for your pain control, you were started on a fentanyl patch at a dose of 12 mcg. This patch will need to be changed every 72 hours (3 days). When you put on the new patch, you will need to remove the old patch. You can still take oxycodone 10 mg tablets as needed for pain, but I recommend that you only take 1 tablet up to 3-4 times a day as needed for breakthrough pain. You are being referred to see the palliative medicine nurse practitioner who is offices in the cancer center. Her office should be contacting you with your appointment date and time. She can adjust the dose of your pain medicine as needed in the future. Please stay on a good regimen of laxatives and fiber to keep your bowels moving as these pain medicines can make you constipated. It was a pleasure taking care of you! If you have any questions about your care before your hospital follow-up visit with your primary care provider, please call [phone] and ask to be transferred to the [facility] Medicine office. Sincerely, Renay Fried M.D. Pending Studies at Discharge: No Stand-Alone Forms: My [facility], Pain - Opioid Pain Management, Smoking Cessation Medications and DC Order Prescriptions: New insulin glargine 100 unit/mL (3 mL) insulin pen 15 unit subcut PM Qty: 15 0RF (DME) pen needle, diabetic [Pen Needle] 32 gauge x 5/32" needle See Rx Instructions .Route Qty: 50 0RF Rx Instructions: As directed for insul use once daily fentanyl 12 mcg/hr patch 72 hour 1 patch transdermal Q72H Qty: 5 0RF Continued trazodone 50 mg tablet 50 mg PO HS diltiazem HCl [Cartia XT] 300 mg capsule,extended release 24hr 300 mg PO DAILY montelukast 10 MG tablet 10 mg PO DAILY Qty: 0 Phenylephrine HCl (Ammon-Synephrine) 225 SPRAYS/15 ML SPRAY 2 spry intranasal BID PRN (Reason: Congestion) Qty: 0 albuterol sulfate [Ventolin HFA] 90 mcg/actuation HFA aerosol inhaler 2 inh inhalation QID PRN (Reason: sob) ondansetron HCl 4 mg tablet 4 mg PO Q8H PRN (Reason: Nausea) levothyroxine 25 mcg tablet 25 mcg PO DAILYBB lorazepam 0.5 mg tablet 0.5 mg PO TID PRN (Reason: Anxiety) pantoprazole 40 mg tablet,delayed release (DR/EC) 40 mg PO DAILY Changed oxycodone 10 mg tablet 10 mg PO Q6H PRN (Reason: severe breakthrough pain) Qty: 30 0RF Patient Comments: Prescribed 1 tablet every 4 hours, per family patient takes 1 or 2 tablets at a time. Discharge Orders: Discharge Order (Routine); Ordered 06/30/25 Ordered By: Renay Fried Admission Data Admit Date/Time: 06/29/25 18:40 Attending Provider: Renay Fried Admit Provider: Renay Fried Primary Care Provider: Varghese Schwab Other Providers: Renay Fried Other Interventions: Discharge Summary Assessment (RN) Last Done: 06/30/25 15:53 Hospital Stay Data Consultations 06/28/25 13:25 ED Decision to Admit Stat Diagnostic Imagining Performed 06/28/25 11:31 CT head/brain wo con Stat Pending Results Patient Have Any Pending Studies at Discharge: No Discharge Instructions Given to Patient (Per Discharging Provider) You were admitted with confusion secondary to high blood sugars from new onset d iabetes, as well as an unintentional overdose of oxycodone. You are now much improved. You were fitted with a continuous glucose monitor to watch your blood sugars constantly. You were having a little difficulty with the bluetooth on your phone connecting to the Dexcom. Sometimes turning the bluetooth off and back on or turning your phone off and back on can help. If you have any further trouble with this, please call [employer] support at to help troubleshoot. You were started on long-acting insulin called Lantus 15 units subcutaneously every night at bedtime. This dose may need to be adjusted over time by your primary care physician. If your PCP desires to refer you to endocrinology, that is also an option but sometimes can take time to get in for an appointment. Please follow all the instructions given to you by the tobacco educator. As for your pain control, you were started on a fentanyl patch at a dose of 12 mcg. This patch will need to be changed every 72 hours (3 days). When you put on the new patch, you will need to remove the old patch. You can still take oxycodone 10 mg tablets as needed for pain, but I recommend that you only take 1 tablet up to 3-4 times a day as needed for breakthrough pain. You are being referred to see the palliative medicine nurse practitioner who is offices in the cancer center. Her office should be contacting you with your appointment date and time. She can adjust the dose of your pain medicine as needed in the future. Please stay on a good regimen of laxatives and fiber to keep your bowels moving as these pain medicines can make you constipated. It was a pleasure taking care of you! If you have any questions about your care before your hospital follow-up visit with your primary care provider, please call [phone] and ask to be transferred to the [facility] Medicine office. Sincerely, Renya Fried M.D. 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
[2025-06-30 15:55] VITALS: PULSE 92
== END 2025-06-30 16:44 | disposition home or self-care (01) | DRG 91 ==
LOC: SUATTDRO → ED 11:14 → 2N 11:14